=== PATIENT | female | born 1940 | race Caucasian/White ===

== ENCOUNTER → 2017-10-14 10:39 | Outpatient (CLI) | payer MEDICARE, OTHER, SELFPAY ==
--- NOTE | 2017-10-14 | DI.RAD.S_ITS ---
PROCEDURE: XR FOOT RT MIN 3V INDICATIONS: pain in right foot TECHNIQUE: 3 views of the foot were acquired. COMPARISON: None. FINDINGS: Bones: No fractures or dislocations. No suspicious bony lesions. Degenerative changes at the first metatarsal head. Hypertrophic changes over the dorsum of the foot at the tarsometatarsal junction. Plantar bone spur posterior calcaneus. Soft tissues: No tibiotalar joint effusion. Achilles tendon appears normal. IMPRESSION: 1. No fracture deformity identified. 2. Degenerative changes at the tarsometatarsal and first metatarsal phalangeal levels. 3. Plantar spur os calcis. Dictated by: Guille Lugo M.D. on 10/14/2017 at 11:54 Approved by: Guille Lugo M.D. on 10/14/2017 at 11:56
--- NOTE | 2017-10-14 | DI.US.S_ITS ---
PROCEDURE: US ABDOMEN COMPLETE INDICATIONS: LEFT UPPER QUADRANT ABDOMINAL PAIN TECHNIQUE: Real-time scanning was performed of the abdominal and retroperitoneal organs, with image documentation. COMPARISON: None. FINDINGS: Liver: Liver is normal in size and homogeneous in echotexture. Gallbladder: Gallbladder is surgically absent Biliary ducts: Intrahepatic bile ducts are non-dilated. Extrahepatic bile duct caliber measures 6 mm. Normal is 6-7 mm or less in diameter, or 10 mm or less post-cholecystectomy. Pancreas: Pancreas is obscured by bowel gas Spleen: Spleen is normal in size and homogeneous in echotexture. Kidneys: Kidneys are normal in size and echotexture. Right kidney measures 11.8 cm long; left kidney measures 10.1 cm long. No hydronephrosis or nephrolithiasis. No solid masses. Aorta: Visualized aorta is normal in caliber at less than 3 cm. Iliacs: Proximal common iliac arteries are normal in caliber at less than 2.5 cm. IVC: Intrahepatic inferior vena cava is patent. Miscellaneous: No free abdominal fluid. There is a 1.6 x 1.9 x 1.9 cm simple appearing fluid collection in the region of the scar in the anterior right upper quadrant, likely seroma IMPRESSION: 1. Status post cholecystectomy with normal common bile duct. 2. Probable seroma right upper quadrant abdominal wall Dictated by: Guille Lugo M.D. on 10/14/2017 at 11:36 Approved by: Guille Lugo M.D. on 10/14/2017 at 11:41
== END ==
PROVIDERS: PCP Family Medicine; Visit Provider Family Medicine
DX: R19.01 Right upper quadrant abdominal swelling, mass and lump (principal); M79.671 Pain in right foot; M19.071 Primary osteoarthritis, right ankle and foot; M77.31 Calcaneal spur, right foot
CPT/HCPCS: 73630; 76700

== ENCOUNTER → 2017-12-13 14:29 | Outpatient (CLI) | payer MEDICARE, OTHER, SELFPAY ==
--- NOTE | 2017-12-13 | DI.MRI.S_ITS ---
PROCEDURE: MR ANKLE RT WO CON INDICATIONS: CHRONIC RIGHT ANTERIOR ANKLE PAIN TECHNIQUE: Noncontrast sagittal T1 spin echo and T2 fast spin echo with fat saturation, axial proton density fast spin echo and T2 fast spin echo with fat saturation, coronal T1 spin echo and T2 fast spin echo with fat saturation through the ankle/hindfoot. COMPARISON: None. FINDINGS: Image quality: Excellent. Bones and joints: There is mild soft tissue swelling around ankle joint and extending along dorsal aspect of midfoot. Moderate osteophytic changes are noted involving the talonavicular joint with prominent dorsal osteophyte formation, subchondral sclerosis and edema. No gross acute fracture or dislocation. No other area of abnormal marrow signal is noted. Well-defined plantar and dorsal calcaneal enthesophytes are noted. No definite hindfoot coalitions. No osteochondral injuries of the talar dome. No pathologic joint effusions. Medial structures: The posterior tibialis, flexor digitorum longus, and flexor hallucis longus tendons are intact. The posterior tibial neurovascular bundle appears normal within the tarsal tunnel, without extrinsic mass effect. The deep layer (anterior and posterior tibiotalar ligaments) and superficial layer (tibionavicular, tibiospring, and tibiocalcaneal ligaments) of the deltoid ligament appear normal. The spring ligament components (superomedial calcaneonavicular, medioplantar oblique calcaneonavicular, and inferoplantar longitudinal ligaments) are intact. Lateral structures: The anterior talofibular, calcaneofibular, and posterior talofibular ligaments appear intact. More superiorly, the anterior and posterior tibiofibular ligaments appear intact, as is the intermalleolar ligament. The tibiofibular syndesmosis is normal in width at 2 mm or less. The peroneus longus and brevis tendons demonstrate normal location and morphology. Adjacent bony peroneal tubercle and retrotrochlear prominence are normal in size. The sinus tarsi demonstrates normal fatty signal, without edema, fibrosis, or cyst formation. Visualized sinus tarsi components (cervical ligament, interosseous talocalcaneal ligament, roots of the inferior extensor retinaculum) appear normal. The calcaneonavicular and calcaneocuboid components of the bifurcate ligament appear intact. The dorsal calcaneocuboid ligament appears intact. Anterior structures: There is thinning of the extensor hallucis longus tendon at the level of talonavicular joint suggestive of [id number] degree partial-thickness tear The tibialis anterior, and extensor digitorum longus tendons appear intact. The dorsal talonavicular ligament appears intact. Posterior and plantar structures: Achilles tendon is intact. Medial and lateral bands of the plantar fascia are of normal thickness. No abductor digiti quinti muscle atrophy to suggest [place] neuropathy. IMPRESSION: 1. Soft tissue swelling around ankle joint and along dorsal aspect of midfoot. 2. Moderate talonavicular joint osteoarthritis with prominent dorsal marginal osteophyte formation and marrow edema. No fracture or dislocation. 3. Low to moderate grade partial-thickness tear involving the extensor hallucis longus tendon at the level of talonavicular joint. No other tendon or ligament pathology is seen. 4. Well-defined plantar and dorsal calcaneal enthesophytes. Dictated by: Shayan Broussard M.D. on 12/13/2017 at 16:11 Approved by: Shayan Broussard M.D. on 12/13/2017 at 16:22
== END ==
PROVIDERS: PCP Family Medicine; Visit Provider Podiatrist
DX: M25.571 Pain in right ankle and joints of right foot (principal); M79.89 Other specified soft tissue disorders; M19.071 Primary osteoarthritis, right ankle and foot; S96.811A Strain of other specified muscles and tendons at ankle and foot level, right foot, initial encounter; M77.31 Calcaneal spur, right foot
CPT/HCPCS: 73721

== ENCOUNTER → 2018-05-23 10:03 | Outpatient (CLI) | payer MEDICARE, OTHER, SELFPAY ==
--- NOTE | 2018-05-23 | DI.RAD.S_ITS ---
PROCEDURE: XR CHEST 2V INDICATIONS: PNEUMONIA TECHNIQUE: 2 views of the chest were acquired. COMPARISON: None. FINDINGS: Surgical changes and devices: None. Lungs and pleura: Lungs are clear. No pleural effusions or pneumothorax. Mediastinum: Mediastinal contours are normal. Heart size is normal. Bones and chest wall: No suspicious bony abnormalities. Soft tissues appear unremarkable. IMPRESSION: Normal for age, source of current pneumonia symptoms is not seen. Dictated by: Andre Conner M.D. on 05/23/2018 at 10:32 Approved by: Andre Conner M.D. on 05/23/2018 at 10:33
== END ==
PROVIDERS: PCP Family Medicine; Visit Provider Family Medicine
DX: J15.9 Unspecified bacterial pneumonia (principal)
CPT/HCPCS: 71046

== ENCOUNTER → 2019-04-15 14:56 | Outpatient (CLI) | payer MEDICARE, OTHER, SELFPAY ==
--- NOTE | 2019-04-15 | DI.US.S_ITS ---
PROCEDURE: US CAROTID DOPPLER BI INDICATIONS: CARDIAC EFRAÍN WALLACE TECHNIQUE: Color and pulse Doppler interrogation was performed of both carotid systems, with image documentation and velocity measurements. COMPARISON: None. FINDINGS: Stenosis calculations are based on SRU (Society of Radiologists in Ultrasound) criteria. Right side: Brachial blood pressure: 143/74 mm Hg. Common carotid artery peak systolic velocity: 122 cm/sec. Internal carotid artery peak systolic velocity: 106 cm/sec. Internal carotid artery end diastolic velocity: 38 cm/sec. External carotid artery peak systolic velocity: 11 cm/sec. ICA/CCA peak systolic ratio: 0.87. Price scale imaging description: Scattered plaque in the bifurcation Percent internal carotid artery stenosis: Less than 50%. Vertebral artery: Flow direction is antegrade. Left side: Brachial blood pressure: 136/66 mm Hg. Common carotid artery peak systolic velocity: 77 cm/sec. Internal carotid artery peak systolic velocity: 90 cm/sec. Internal carotid artery end diastolic velocity: 30 cm/sec. External carotid artery peak systolic velocity: 309 cm/sec. ICA/CCA peak systolic ratio: 1.17. Price scale imaging description: Calci plaque in the bifurcation Percent internal carotid artery stenosis: Less than 50%. Vertebral artery: Flow direction is antegrade. IMPRESSION: Bilateral carotid atherosclerotic plaque. No hemodynamically significant ICA stenosis Incidentally noted left proximal ECA high-grade stenosis Dictated by: Chris Hanna M.D. on 04/15/2019 at 15:59 Approved by: Chris Hanna M.D. on 04/15/2019 at 16:02
--- NOTE | 2019-04-15 | DI.ECHO.S_ITS ---
[place] [facility]---------+ [facility] +---------+ : : [address] : : : : [id number] : : : : Phone: [phone] Echocardiogram Report + + :Name: NALLELY MERRITT Study Date: 04/15/2019 Height: 61 in : :[facility] Weight: 58 lb : : Gender: Female BSA: 1.1 m2 : :: 1940 Age: 79 yrs BP: 138/65 mmHg: :Reason For Study: MURMUR : :Ordering Physician: Dr. Foss : :Pasha Performed By: Rome Morfin : :Referring: KATHY GOVEA L : + + Interpretation Summary Normal sinus rhythm. Normal LV size, wall thickness, wall motion and LV systolic function. EF is 60-65%. Normal chamber sizes. Aortic valve leaflets are moderately thickened and mildly calcified. It is a trileaflet structure with moderately reduced leaflet excursion and mild- moderate ; mean gradient is 18 mm Hg and peak velocity is 2.7m/sec. There is mild mitral annular calcification. Otherwise no significant valvular abnormalities. No prior study available for comparison. Procedure: A two-dimensional transthoracic echocardiogram with color flow and Doppler was performed. The study quality was technically adequate. There is no prior echocardiogram noted for this patient. The patient was in normal sinus rhythm during the exam. Left Ventricle: The left ventricle is normal in size. There is normal left ventricular wall thickness. Left ventricular systolic function is normal. The ejection fraction is estimated to be 60-65%. Left ventricular wall motion is normal. Right Ventricle: The right ventricle is normal in size and function. Atria: The left atrial size is normal. Right atrial size is normal. The interatrial septum is intact with no evidence for an atrial septal defect. Mitral Valve: The mitral valve leaflets appear mildly thickened, but open well. The mitral valve leaflets are mildly calcified. Calcified chordae noted. There is mild mitral annular calcification. There is no mitral regurgitation noted. Aortic Valve: The aortic valve is mildly calcified. There is mild to moderately reduced leaflet mobility. There is mild to moderate aortic stenosis. The calculated aortic valve area is 1.3 cm2. The peak aortic velocity is 2.7 m/sec. The aortic valve mean gradient is 16 mmHg. There is trace aortic regurgitation. Tricuspid Valve: The tricuspid valve is normal in structure and function. There is trace tricuspid regurgitation. Pulmonary artery pressures cannot be estimated because of the lack of a measurable TR jet velocity. Pulmonic Valve: The pulmonic valve is not well visualized. There is trace pulmonic regurgitation. Great Vessels: The aortic root is normal size. The dimensions of the ascending aorta are normal. The pulmonary artery is normal size. The inferior vena cava was not visualized. Pericardium/ Pleura There is no pericardial effusion. There is no pleural effusion. MMode/2D Measurements & Calculations LVIDd: 4.1 cm LVOT diam: 2.0 cm LVIDs: 2.5 cm Ao root diam: 2.8 cm FS: 39.0 % Aortic Jxn: 2.0 cm EPSS: 0.55 cm asc Aorta Diam: 2.8 cm IVSd: 0.93 cm LVPWd: 0.83 cm LV guerin. diameter/BSA (cm/m^2): 3.7 LV sys. diameter/BSA (cm/m^2): 2.2 LA A2 area: 14.2 cm2 RA long axis: 5.3 cm LA A4 area: 15.7 cm2 RA area: 9.8 cm2 LA length (vol): 5.2 cm RA vol: 15.5 ml LA vol: 36.2 ml RA : 13.9 ml/m2 LA vol index: 32.4 ml/m2 TAPSE: 2.0 cm Doppler Measurements & Calculations Ao V2 max: 266.6 cm/sec LVOT Max Lb: 106.9 cm/sec Ao V2 mean: 189.2 cm/sec LV V1 max P.6 mmHg Ao max P.4 mmHg LV V1 VTI: 26.8 cm Ao mean P.1 mmHg ROB(I,D): 1.3 cm2 Ao V2 VTI: 62.1 cm ROB(V,D): 1.2 cm2 sev ratio: 0.43 ROB indexed to BSA (cm^2/m^2): 1.2 MV E max lb: 57.2 cm/sec PA V2 max: 76.6 cm/sec MV A max lb: 96.0 cm/sec PA V2 mean: 55.5 cm/sec MV E/A: 0.60 PA mean P.4 mmHg Med Peak E' Lb: 6.4 cm/sec PA Accel Time: 0.11 sec E/E' med: 8.9 Lat Peak E' Lb: 9.8 cm/sec E/E' lat: 5.8 E/e' average: 7.4 MV dec time: 0.21 sec SV(LVOT): 81.9 ml Electronically signed by: Terrie Magallon M.D. on Reading Physician:04/15/2019 10:02 PM
== END ==
PROVIDERS: PCP Family Medicine; Visit Provider Family Medicine
DX: I65.23 Occlusion and stenosis of bilateral carotid arteries (principal); I35.0 Nonrheumatic aortic (valve) stenosis; R01.1 Cardiac murmur, unspecified; R53.83 Other fatigue
CPT/HCPCS: 93306; 93880

== ENCOUNTER → 2020-01-07 08:49 | Outpatient (CLI) | payer MEDICARE, OTHER, SELFPAY ==
--- NOTE | 2020-01-07 | DI.US.S_ITS ---
PROCEDURE: US ABDOMEN COMPLETE INDICATIONS: EPIGASTRIC PAIN TECHNIQUE: Real-time scanning was performed of the abdominal and retroperitoneal organs, with image documentation. COMPARISON: [facility], , US ABDOMEN COMPLETE, 10/14/2017, 11:02. FINDINGS: Liver: Liver is normal in size and homogeneous in echotexture. Gallbladder: Has been removed Biliary ducts: Intrahepatic bile ducts are non-dilated. Extrahepatic bile duct caliber measures 4 mm. Normal is 6-7 mm or less in diameter, or 10 mm or less post-cholecystectomy. Pancreas: Visualized portions of the pancreas are sonographically normal. Spleen: Spleen is normal in size and homogeneous in echotexture. Kidneys: Kidneys are normal in size and echotexture. Right kidney measures 9.6 cm long; left kidney measures 10.2 cm long. No hydronephrosis or nephrolithiasis. No solid masses. Within the mid left kidney anteriorly, there is a 14 mm simple cyst seen. Aorta: Visualized aorta is normal in caliber at less than 3 cm. Iliacs: Proximal common iliac arteries are normal in caliber at less than 2.5 cm. IVC: Intrahepatic inferior vena cava is patent. Miscellaneous: No free abdominal fluid. Within the anterior abdominal wall on the right at the prior cholecystectomy scar, there is an anechoic fluid collection seen within the subcutaneous fat seen that measures 2.2 x 1.2 x 1.5 cm. No abnormal surrounding vascularity is seen. On the prior study, this measured 1.9 x 1.9 x 1.6 cm. IMPRESSION: Persistent seroma of the anterior abdominal wall, which is similar in size to the prior study from 2018. No abnormal vascularity is seen to suggest abscess at this time. Status post cholecystectomy, without biliary dilatation. Incidental note is made of: Simple appearing left renal cyst. Dictated by: Jose Lemus M.D. on 01/07/2020 at 9:54 Approved by: Jose Lemus M.D. on 01/07/2020 at 9:56
== END ==
PROVIDERS: PCP Family Medicine; Referring Provider Family Medicine; Visit Provider Family Medicine
DX: R10.13 Epigastric pain (principal); K91.872 Postprocedural seroma of a digestive system organ or structure following a digestive system procedure; Z90.49 Acquired absence of other specified parts of digestive tract
CPT/HCPCS: 76700

== ENCOUNTER 2023-06-10 17:25 | Observation (INO) | payer MEDICARE, OTHER, SELFPAY ==
[2023-06-10 17:36] VITALS: BP 171/74; PULSE 80; RESP 18; TEMP 36.4; O2SAT 98
[2023-06-10 17:46] VITALS: BP 171/74; PULSE 81; RESP 18; TEMP 36.4; O2SAT 98; BMI 26.4
[2023-06-10 18:25] LABS: Add Manual Diff / Slide Review NO; Basophils Absolute Auto 0 /uL (0-100); Basophils Percent Auto 0.5 % (0-2); Eosinophils Absolute Auto 500 /uL (0-450); Eosinophils Percent Auto 5.3 % (2-4); Hematocrit 33.2 % (36-46); Hemoglobin 11.2 g/dL (12.0-16.0); Lymphocytes Absolute Auto 1300 /uL (1100-4500); Lymphocytes Percent Auto 12.7 % (25-40); Mean Corpuscular HGB Conc 33.7 % (30-36); Mean Corpuscular Hemoglobin 30.1 PG (26-34); Mean Corpuscular Volume 89.1 fL (80-100); Monocytes Absolute Auto 700 /uL (0-900); Neutrophils Absolute Auto 7400 /uL (1500-7000); Neutrophils Percent Auto 74.5 % (50-75); Platelet Count 242 X10^3/uL (150-400); Red Blood Cell Count 3.73 X10^6/uL (4.0-5.2); Red Cell Distribution Width 14.3 % (11.6-14.8); White Blood Cell Count 9.9 X10^3/uL (4.5-11.0)
--- NOTE | 2023-06-10 18:36 | PC.NURSE ---
Pt reports initial toe redness/swelling back in december of 2022. It has been getting worse and patient saw her PCP and was given keflex antibiotics. She finishes the antibiotics tomorrow. Pt states increased redness,warmth, rash, radiating up through her calf, painful to touch. Pt states able to walk on the side of my foot with a walker, and very dizzy with walking. Pt also has similar red spots/rash on her right lower extremity. Pt reports history of multiple left foot surgeries due to breaking her great toe years ago. Pt says they had to go in multiple times to remove bone fragments. Pt refused further surgeries after 4x foot surgery's .
[2023-06-10 18:47] LABS: Alanine Aminotransferase 24 IU/L (<35); Albumin Globulin Ratio 1.3 (1.0-2.8); Alkaline Phosphatase 66 U/L (38-126); Aspartate Aminotransferase 31 IU/L (14-36); BUN Creatinine Ratio 28.3 (6-22); Bilirubin Total 0.5 mg/dL (0.2-1.3); Blood Urea Nitrogen 15 mg/dL (7-17); Calcium 8.9 mg/dL (8.4-10.2); Carbon Dioxide 34 mmol/L (22-32); Chloride 102 mmol/L (98-107); Estimated Glomerular Filt Rate > 60 mL/min (>60); Globulin 3.2 g/dL (1.7-4.1); Glucose 102 mg/dL (80-110); HEMOLYSIS < 15 (0-50); Potassium 4.1 mmol/L (3.4-5.1); Sodium 138 mmol/L (137-145); Total Protein 7.2 g/dL (6.3-8.2)
--- NOTE | 2023-06-10 19:30 | ED.SKABFB ---
HPI - Skin/Abscess/Foreign Bdy General Chief complaint: Skin/Abscess/Foreign Body Stated complaint: recheck toe infection Time Seen by Provider: 06/10/23 17:59 Source: patient Mode of arrival: EMS Limitations: no limitations History of Present Illness HPI narrative: 83-year-old woman with prior history of stroke no diabetes who presents with a left great toe infection that does not seem to be improving despite 2 weeks of Keflex. She does not describe fevers, abdominal pain, difficulty walking. She does have full sensation to her feet. She comes in for further evaluation Related Data Home Medications Medication Instructions Recorded Confirmed atorvastatin 80 mg tablet 80 mg PO DAILY 06/10/23 06/10/23 losartan 25 mg tablet 25 mg PO DAILY 06/10/23 06/10/23 Allergies Allergy/AdvReac Type Severity Reaction Status Date / Time No Known Drug Allergies Allergy Verified 06/10/23 17:49 Review of Systems Review of Systems Narrative: Pertinent positive and negative findings as per HPI Patient History Medical History (Updated 06/10/23 @ 22:12 by Stefani Bailon MD) CVA (cerebral vascular accident) Social History Smoking Status: Never smoker Smoking Status: Never smoker alcohol intake frequency: 0-2 drinks per day Substance Use Type: does not use Exam Initial Vital Signs Initial Vital Signs: Vital Signs Temperature 97.6 F 06/10/23 17:36 Pulse Rate 80 06/10/23 17:36 Respiratory Rate 18 06/10/23 17:36 Blood Pressure 171/74 H 06/10/23 17:36 Pulse Oximetry 98 06/10/23 17:36 Oxygen Delivery Method Room Air 06/10/23 17:36 General: Frail but otherwise healthy appearing, in no acute distress. Able to give a complete and coherent history. HEENT: Moist mucous membranes, normal sclera with reactive pupils, Neck: No JVD, supple Respiratory: Lungs are clear to auscultation, no wheezing no rales no rhonchi. Full and symmetrical air movement Cardiac: Regular rate and rhythm 3/6 systolic ejection murmur Abdomen: Soft, nontender, good bowel tones, no flank pain, no inguinal adenopathy Skin: Warm and dry, increasing redness over the dorsum of the foot. Chronic stasis dermatitis bilaterally. Neurologic: Grossly neurologically intact with no obvious asymmetries or abnormalities Extremities: Left great toe has significant onychomycosis with what appears to be purulent discharge under the nail causing paronychia with lymphangitic streaking starting over the dorsum of the foot. She is neurovascularly intact and does have good sensation to the tips of all toes. Psych: Cooperative, appropriate insight and affect Procedures [facility] [place] Procedure Name of Procedure: Toenail removal, left great toe Indication, infected paronychia Digital block done with 1% lidocaine without epinephrine with excellent anesthetic Quite a bit of purulence appreciated under the nail and at the nail base, this was collected for culture She tolerated the procedure well, a dressing with iodoform gauze was placed Course Orders Ordered: ED Orders 06/10/23 18:04 CBC Auto Diff [Complete Blood Count AUTO DIFF] Stat 06/10/23 18:15 Blood Culture Stat CMP [Comprehensive Metabolic Panel] Stat 06/10/23 19:13 Wound Culture and Gram Stain Stat 06/10/23 19:22 Lactate (Lactic Acid) Stat 06/10/23 22:09 XR toe LT min 2V Stat Discontinued Medications Ceftriaxone Sodium 2,000 mg/ (Sodium Chloride) 100 mls @ 200 mls/hr IV NOW ONE Stop: 06/10/23 19:16 Last Infusion: 06/10/23 20:10 Dose: Infused Documented By: Admin: 06/10/23 19:33 Dose: 200 mls/hr Documented By: RAHUL Vital Signs Vital signs: Vital Signs - 8 hr 06/10/23 17:36 06/10/23 17:46 Temperature 97.6 F 97.6 F Pulse Rate 80 81 Respiratory Rate 18 18 Blood Pressure 171/74 H Blood Pressure [Right Arm] 171/74 H Pulse Oximetry 98 98 Oxygen Delivery Method Room Air Room Air MDM - Skin/Abscess/Foreign Bdy Lab Data 06/10/23 18:04 06/10/23 18:15 Labs: Lab Results 06/10/23 06/10/23 06/10/23 Range/Units 18:04 18:15 19:22 WBC 9.9 (4.5-11.0) X10^3/uL RBC 3.73 L (4.0-5.2) X10^6/uL Hgb 11.2 L (12.0-16.0) g/dL Hct 33.2 L (36-46) % MCV 89.1 (80-100) fL MCH 30.1 (26-34) PG MCHC 33.7 (30-36) % RDW 14.3 (11.6-14.8) % Plt Count 242 (150-400) X10^3/uL Neut % (Auto) 74.5 (50-75) % Lymph % (Auto) 12.7 L (25-40) % Hamlin % (Auto) 7.0 (3-14) % Eos % (Auto) 5.3 H (2-4) % Baso % (Auto) 0.5 (0-2) % Neut # (Auto) 7400 H (7317-5483) /uL Lymph # (Auto) 1300 (3383-1094) /uL Hamlin # (Auto) 700 (0-900) /uL Eos # (Auto) 500 H (0-450) /uL Baso # (Auto) 0 (0-100) /uL Sodium 138 (137-145) mmol/L Potassium 4.1 (3.4-5.1) mmol/L Chloride 102 (98-107) mmol/L Carbon Dioxide 34 H (22-32) mmol/L BUN 15 (7-17) mg/dL Creatinine 0.53 (0.52-1.04) mg/dL Estimated GFR > 60 (>60) mL/min BUN/Creatinine Ratio 28.3 H (6-22) Glucose 102 (80-110) mg/dL Lactate 0.8 (0.7-2.1) mmol/L Calcium 8.9 (8.4-10.2) mg/dL Total Bilirubin 0.5 (0.2-1.3) mg/dL AST 31 (14-36) IU/L ALT 24 (<35) IU/L Alkaline Phosphatase 66 (38-126) U/L Total Protein 7.2 (6.3-8.2) g/dL Albumin 4.0 (3.5-5.0) g/dL Globulin 3.2 (1.7-4.1) g/dL Albumin/Globulin Ratio 1.3 (1.0-2.8) MDM Narrative Medical decision making narrative: CC: Concerned that left great toe infection is worsening Complicating co-morbidities: Age, 2 weeks of antibiotics already, prior stroke, no diabetes Data collected from: patient Medical records reviewed: No medical records are available for review Differential considered: Paronychial infection, worsening cellulitis, Exam documented above, pertinent findings include: Left great toe appears to have an abscess developing under the significantly dystrophic onychomycotic great nail with expanding paronychia and now with lymphangitic streaking up the dorsum of the foot. No abdominal pain, no swelling above the ankle, no inguinal adenopathy Lab Test results independently reviewed as above. Pertinent findings: CBC shows a white count of 9.9, mild anemia at 11.2 and 33.2 Chemistries are unremarkable with normal renal function Lactic is unremarkable Imaging studies independently reviewed: X-ray of the foot with radiology interpretation indicates Increased radiolucency involving medial and plantar periphery of 1st metatarsal head and neck, early osteomyelitis cannot be excluded. No suspicious bony lesions. Consultations: Dr. Yancey hospitalist Treatments: IV antibiotics, ceftriaxone, great toenail is removed, purulence underneath is cultured, she is given IV ceftriaxone, for her anxiety and to help her sleep she is given half a mg of oral Ativan. Discussion: 83-year-old woman with no significant history for coronary artery disease, diabetes or peripheral vascular disease who presents with infection of the left great toe. She has fairly dystrophic nail that seems to have caused paronychial infection that now has quite a bit of purulence in the paronychia and under the nail. She has been on antibiotics for 2 weeks it has not getting better is now having lymphangitic streaking up the dorsum of the foot. The nail has been removed. As she has failed outpatient treatment I am recommending hospitalization. She has been given ceftriaxone in the emergency department. At this point she has not having any pain, there was no evidence of sepsis. X-ray of the foot does not completely rule out osteomyelitis. We will need to be reviewed with hospitalist service to see if additional imaging we will be appropriate tomorrow. We will review with the hospitalist physician Discharge Plan Departure Patient Disposition: Admitted as Observation Clinical Impression: Acute bacterial paronychia, Onychodystrophy Cellulitis Qualifiers: Site of cellulitis: extremity Site of cellulitis of extremity: lower extremity Laterality: left Qualified Code(s): L03.116 - Cellulitis of left lower limb Admit Date/Time: 06/10/23 22:39 Admit Provider: Macario Steel
[2023-06-10] MEDS: cefTRIAXone 2,000 MG in SODIUM CHLORIDE 0.9% 100 ML 200 MG IV (19:33)
[2023-06-10 20:02] LABS: Lactate (Lactic Acid) 0.8 mmol/L (0.7-2.1)
--- NOTE | 2023-06-10 22:09 | DI.RAD.S_ITS ---
PROCEDURE: XR TOE LT MIN 2V INDICATIONS: infection TECHNIQUE: 3 views of the right toe(s) acquired. COMPARISON: None. FINDINGS: Bones: No fractures or dislocations. Prior fixation of great toe is seen with [address] No gross hardware loosening or failure. Increased radiolucency involving medial and plantar periphery of 1st metatarsal head and neck, early osteomyelitis cannot be excluded. No suspicious bony lesions. Soft tissues: No suspicious soft tissue densities. IMPRESSION: No acute left foot fracture or dislocation. Increased radiolucency involving plantar and medial aspect of 1st metatarsal head and neck, early osteomyelitis cannot be entirely excluded. No fracture or dislocation. Dictated by: Shayan Broussard M.D. on 06/10/2023 at 22:27 Approved by: Shayan Broussard M.D. on 06/10/2023 at 22:29
--- NOTE | 2023-06-10 22:33 | PC.NURSE ---
Update given to granddaughter Kenisha, per pt gave all information available at this time.
[2023-06-10 23:09] VITALS: BMI 26.4
[2023-06-10 23:35] VITALS: BP 150/64; PULSE 69; RESP 14; O2SAT 96
--- NOTE | 2023-06-11 00:06 | P.HP_ITS ---
History of Present Illness History of Present Illness Chief complaint: recheck toe infection Narrative: The pt is a 83 yo who developed sore red left great toe about 5 months ago and it has not bothered her much until 3 weeks ago when she noticed that the swelling was worse and it was much more painful. She comes to the ER Tonight due to the pain in the toe. In the ER, the provider removed the toenail and expressed moderate amount of pus. During my exam, she was feeling well and did not c/o any pain . [facility] Medical History (Updated 06/11/23 @ 00:07 by Macario Steel MD) CVA (cerebral vascular accident) Social History household members: family Smoking Status: Never smoker alcohol intake: never Meds Home Medications and Allergies Home Medications Medication Instructions Recorded Confirmed Type atorvastatin 80 mg tablet 80 mg PO DAILY 06/10/23 06/10/23 History losartan 25 mg tablet 25 mg PO DAILY 06/10/23 06/10/23 History aspirin 81 mg capsule 81 mg PO DAILY 06/11/23 06/11/23 History polyethylene glycol 3350 17 gram 17 g PO DAILY PRN Constipation 06/11/23 06/11/23 History oral powder packet (Miralax) Allergies Allergy/AdvReac Type Severity Reaction Status Date / Time No Known Drug Allergies Allergy Verified 06/10/23 17:49 Exam Vital Signs (past 8 hours): - 06/10/23 17:36 06/10/23 17:46 06/10/23 23:35 Temperature 97.6 F 97.6 F Pulse Rate 80 81 69 Respiratory Rate 18 18 14 Blood Pressure 171/74 H 150/64 H Blood Pressure [Right Arm] 171/74 H Pulse Oximetry 98 98 96 Oxygen Delivery Method Room Air Room Air Room Air Oxygen Delivery Method Room Air Resp Auscultation: clear to auscultation bilaterally Cardio Rate: regular rate Rhythm: regular rhythm Extrem Other: left great toe wrapped in gauze Objective Labs 06/10/23 18:04 06/10/23 18:15 Labs: Laboratory Results - last 24 hr 06/10/23 06/10/23 06/10/23 18:04 18:15 19:22 WBC 9.9 RBC 3.73 L Hgb 11.2 L Hct 33.2 L MCV 89.1 MCH 30.1 MCHC 33.7 RDW 14.3 Plt Count 242 Neut % (Auto) 74.5 Lymph % (Auto) 12.7 L [place] % (Auto) 7.0 Eos % (Auto) 5.3 H Baso % (Auto) 0.5 Neut # (Auto) 7400 H Lymph # (Auto) 1300 [place] # (Auto) 700 Eos # (Auto) 500 H Baso # (Auto) 0 Sodium 138 Potassium 4.1 Chloride 102 Carbon Dioxide 34 H BUN 15 Creatinine 0.53 Estimated GFR > 60 BUN/Creatinine Ratio 28.3 H Glucose 102 Lactate 0.8 Calcium 8.9 Total Bilirubin 0.5 AST 31 ALT 24 Alkaline Phosphatase 66 Total Protein 7.2 Albumin 4.0 Globulin 3.2 Albumin/Globulin Ratio 1.3 Assessment & Plan Assessment and plan (1) Cellulitis: Qualifiers: Laterality: left Site of cellulitis: extremity Site of cellulitis of extremity: lower extremity Qualified Code(s): L03.116 - Cellulitis of left lower limb Status: Acute (2) Acute bacterial paronychia: Status: Acute Plan THe pt is in stable medical condition, She was started on rocephin but I feel Vancomycin might have better coverage on a toe thus pharmacy was consulted for dose calculation and monitoring toxicity. I did discuss the pt's condition and treatment plan with the ER provider and agree with the decision for admission. We do not expect a long hospitalization, antiemetics and pain meds ordered prn. Quality VTE Deep Vein Thrombosis/Pulmonary Embolism Present on Admission: No
[2023-06-11 00:09] VITALS: BP 155/76; PULSE 84; RESP 16; TEMP 36.3; O2SAT 95
[2023-06-11] MEDS: HYDROCODONE/ACET 5/325 TABLET 1 TAB PO ×3 (00:14→20:38)
[2023-06-11] MEDS: VANCOMYCIN 1,250 MG/250 ML PIGGYBACK 167 MG IV (00:40)
[2023-06-11 06:12] VITALS: BP 111/54; PULSE 69; RESP 17; TEMP 36.3; O2SAT 96
[2023-06-11 08:00] VITALS: BP 123/64; PULSE 67; RESP 16; TEMP 36.6; O2SAT 99
--- NOTE | 2023-06-11 08:27 | DI.MRI.S_ITS ---
PROCEDURE: MR FOOT LT WO/W CON INDICATIONS: possible L great toe osteomyelitis TECHNIQUE: Multiphasic, multisequence MRI of the forefoot was performed, before and after intravenous contrast administration. COMPARISON: [facility], CR, XR TOE LT MIN 2V, 06/10/2023, 22:11. FINDINGS: Image quality: Mild mental artifact is seen related to the orthopedic hardware including areas of signal void, signal pile-up, and geometric distortion as well as inhomogeneous fat suppression despite the use of metal artifact reduction techniques. Diagnostic information is obtained. Bones and joints: Postsurgical changes are seen at the distal 1st metatarsal from realignment osteotomy and bunionectomy, with associated metal artifact that mildly obscures adjacent structures. Normal signal intensity is seen within the osseous structures of the great toe without loss of T1-weighted signal or cortical destruction. Mild degenerative changes are seen at the 1st metatarsophalangeal and metatarsal sesamoid articulations. Scattered degenerative changes are seen at the interphalangeal joints of the toes. Soft tissues: Abnormal appearance of the nail is seen at the great toe with small amount of nonenhancing fluid in the nail bed and surrounding soft tissue edema and enhancement. No drainable fluid collection is seen. Subcutaneous edema extends into the dorsum of the foot. No enhancing soft tissue mass. The visualized plantar foot muscles demonstrate normal signal and bulk. Visualized flexor and extensor tendons appear intact, without tenosynovitis. The distal insertions of the peroneus brevis and longus tendons appear intact. The principal Lisfranc ligament appears intact. Sagittal images demonstrate no evidence for plantar plate tears. IMPRESSION: 1. Soft tissue edema and enhancement are seen in the region of the nail bed and subungual region of the great toe. No drainable fluid collection is seen. No MR evidence of osteomyelitis. 2. Postsurgical changes at the distal 1st metatarsal. Mild forefoot osteoarthrosis. Approved by: Dung Ricketts M.D. on 06/11/2023 at 11:52
[2023-06-11] MEDS: VANCOMYCIN PER PHARMACY 1 REQUEST MISC (08:42)
[2023-06-11] MEDS: ACETAMINOPHEN 325 MG TABLET 650 MG PO (08:46)
[2023-06-11] MEDS: LOSARTAN 25 MG TABLET PO (08:46)
[2023-06-11] MEDS: cefTRIAXone 2,000 MG in SODIUM CHLORIDE 0.9% 100 ML 200 MG IV (09:49)
[2023-06-11] MEDS: SODIUM CHLORIDE 0.9% FLUSH 10 ML IV ×2 (09:50→20:32)
[2023-06-11 11:35] LABS: Hemoglobin A1C% w Est Avg Glu 5.4 % (4.0-6.0)
--- NOTE | 2023-06-11 11:42 | P.PN_ITS ---
Subjective Subjective Interval history: Patient will have MRI today to determine if osteomyelitis present in L 1st toe. She is not excited about the thought of 6 weeks of IV abx. Exam Vital Signs (past 8 hours): - 06/11/23 06:12 06/11/23 08:00 Temperature 97.3 F L 97.8 F Pulse Rate 69 67 Respiratory Rate 17 16 Blood Pressure 111/54 L 123/64 Pulse Oximetry 96 99 Oxygen Flow Rate 0 0 Oxygen Delivery Method Room Air Oxygen Flow Rate 0 Resp Auscultation: clear to auscultation bilaterally Cardio Rate: regular rate Rhythm: regular rhythm Extrem Other: left great toe wrapped in gauze, with redness extending fci up left foot Objective Labs 06/10/23 18:04 06/10/23 18:15 Labs: Laboratory Results - last 24 hr 06/10/23 06/10/23 06/10/23 18:04 18:15 19:22 WBC 9.9 RBC 3.73 L Hgb 11.2 L Hct 33.2 L MCV 89.1 MCH 30.1 MCHC 33.7 RDW 14.3 Plt Count 242 Neut % (Auto) 74.5 Lymph % (Auto) 12.7 L [place] % (Auto) 7.0 Eos % (Auto) 5.3 H Baso % (Auto) 0.5 Neut # (Auto) 7400 H Lymph # (Auto) 1300 [place] # (Auto) 700 Eos # (Auto) 500 H Baso # (Auto) 0 Sodium 138 Potassium 4.1 Chloride 102 Carbon Dioxide 34 H BUN 15 Creatinine 0.53 Estimated GFR > 60 BUN/Creatinine Ratio 28.3 H Glucose 102 Lactate 0.8 Calcium 8.9 Total Bilirubin 0.5 AST 31 ALT 24 Alkaline Phosphatase 66 Total Protein 7.2 Albumin 4.0 Globulin 3.2 Albumin/Globulin Ratio 1.3 [facility] Medical History (Updated 06/11/23 @ 00:07 by Macario Steel MD) CVA (cerebral vascular accident) Social History household members: family Smoking Status: Never smoker alcohol intake: never Assessment & Plan Assessment & Plan narrative: # cellulitis and abscess of L great toe, with possible underlying osteomyelitis -I&D of pus performed in ED, culture pending -continue vanco -MRI left foot ordered to look for osteomyelitis -if MRI positive may need to involve ortho # HTN -continue losartan # HLD -continue statin Dispo; Pending MRI results. 1-2 days. Quality VTE Deep Vein Thrombosis/Pulmonary Embolism Present on Admission: No
--- NOTE | 2023-06-11 14:33 | CM.DANOTE ---
DCP Assessment Note Reviewed EMR and team rounds for patient's medical status and initial discharge needs. Met with pt at bedside to introduce self and role. Pt was found to be alert and oriented and able to discuss preferences for discharge. Pt is , lives in own apartment above granddaughter. Granddaughter is able to provide care assistance as well as transport home once medically cleared for discharge. Payer: Medicare PCP: Pipo Pak Pt is an 83 year old female who was admitted for cellulitis and imaging ruled out osteomyelitis. Plan: Follow closely for possible PT eval and any impending discharge needs. Discharge Planning/Care Management CM Discharge Assessment Start: 06/11/23 11:50 Freq: Status: Active Protocol: Document 06/11/23 13:52 MW (Rec: 06/11/23 14:30 MW [id number]) Discharge Planning Assessment Assigned Inventory Specialist MANISH Escalante Advance Directives? No History Provided By Patient,Medical Record Expected Length of Stay 2 Has Patient been admitted in last 30 No days? Prior Living Arrangements House Household Members family Comment Patient lives in an apartment above her granddaughter. Type of transporation used prior to Relies on Others admit Independent with ADL's Yes Is patient alert and oriented? Yes Needs Assistance With Home Chores / Shopping Comment Pt relies on children/ granddaughters for assistance with shopping and medical appointments. Caregiver for Another No DME Already Rented / Owned FWW / Walker Comment No identified home d/c needs a this time. Barriers to Discharge No Discharge Plan Home Referrals Initiated None needed Whiteboard Updated in Patient Room with Yes name and ext. # of Inventory Specialist Please Provide Date Initial DC 06/11/23 Assessment Was Performed
[2023-06-11 16:00] VITALS: BP 123/53; PULSE 66; RESP 16; TEMP 36.4; O2SAT 90
[2023-06-11] MEDS: VANCOMYCIN 1,000 MG/200 ML PIGGYBACK 200 MG IV (18:21)
[2023-06-11 21:34] VITALS: BP 147/62; PULSE 62; RESP 16; TEMP 36.2; O2SAT 96
[2023-06-12 04:26] VITALS: BP 159/62; PULSE 70; RESP 16; TEMP 36.2; O2SAT 96
--- NOTE | 2023-06-12 04:27 | PC.NURSE ---
Patient is alert and oriented. Breath sounds CTA with RA sat of 96%. HRR. Complained of dizziness when up to bathroom at start of shift but no complaints of same at this time. Denied nausea. BT present and is passing flatus but last BM was 3/ but declined laxative. Is voiding on toilet and denied any dysuria. Is able to turn herself and gets up to bathroom with walker and 1 assist. Dressing to left great toe is CDI; toe is reddened at tip and some redness also noted on dorsum of foot. Complained of 8/10 chronic head pain (residual from CVA per patient) and 4/10 toe pain and was medicated with vicodin earlier on shift and has been asleep until now; now states pain in toe is 6/10 but declined any further pain medication. Bilateral calf SCD's were applied. Placed on contact precautions at start of shift as toe culture is growing gm + cocci. Fall risk score is high and bed alarm is activated.
[2023-06-12 08:00] VITALS: BP 137/68; PULSE 69; RESP 16; TEMP 36.4; O2SAT 96
[2023-06-12] MEDS: cefTRIAXone 2,000 MG in SODIUM CHLORIDE 0.9% 100 ML 200 MG IV (08:32)
[2023-06-12] MEDS: SODIUM CHLORIDE 0.9% FLUSH 10 ML IV (08:33)
[2023-06-12] MEDS: LOSARTAN 25 MG TABLET PO (08:46)
[2023-06-12] MEDS: ACETAMINOPHEN 325 MG TABLET 650 MG PO (08:47)
[2023-06-12] MEDS: VANCOMYCIN 1,000 MG/200 ML PIGGYBACK 200 MG IV (11:07)
--- NOTE | 2023-06-12 12:10 | PM.CN ---
History of Present Illness Consult details Date Patient Seen: 06/12/23 Time Patient Seen: 12:00 Chief complaint: recheck toe infection Reason for consult: Left great toe infection Requesting provider: Jamarcus Cruz Narrative: Consulted with patient admitted to acute care for acute bacterial paronychia of the left great toe. Patient is currently receiving IV antibiotics. Patient denies pain with dressing change. Meds Home Medications and Allergies Home Medications Medication Instructions Recorded Confirmed Type atorvastatin 80 mg tablet 80 mg PO DAILY 06/10/23 06/10/23 History losartan 25 mg tablet 25 mg PO DAILY 06/10/23 06/10/23 History aspirin 81 mg capsule 81 mg PO DAILY 06/11/23 06/11/23 History polyethylene glycol 3350 17 gram 17 g PO DAILY PRN Constipation 06/11/23 06/11/23 History oral powder packet (Miralax) doxycycline hyclate 100 mg capsule 100 mg PO BID 5 days #10 caps 06/12/23 Rx Allergies Allergy/AdvReac Type Severity Reaction Status Date / Time No Known Drug Allergies Allergy Verified 06/10/23 17:49 Exam Vital Signs (past 8 hours): - 06/12/23 04:26 Temperature 97.1 F L Pulse Rate 70 Respiratory Rate 16 Blood Pressure 159/62 H Pulse Oximetry 96 Oxygen Flow Rate 0 Oxygen Delivery Method Room Air Oxygen Flow Rate 0 Objective Labs 06/10/23 18:04 06/10/23 18:15 [facility] Medical History (Updated 06/11/23 @ 00:07 by Macario Steel MD) CVA (cerebral vascular accident) Social History household members: family Tobacco & Substance Use Smoking Status: Never smoker alcohol intake: never Assessment & Plan Assessment and plan (1) Acute bacterial paronychia: Status: Acute Plan -Cleanse with NS -Dress wound with xeroform, secure with roll guaze. -Change daily
--- NOTE | 2023-06-12 15:29 | CM.DPC ---
DCP Cont. Reviewed EMR and team rounds for status updates. Following for day and time for wound care follow up appointments post discharge. CM Team following for any impending discharge needs.
--- NOTE | 2023-06-12 15:59 | PM.DS.1 ---
History of Present Illness History of Present Illness Chief complaint: recheck toe infection Narrative: The pt is a 83 yo who developed sore red left great toe about 5 months ago and it has not bothered her much until 3 weeks ago when she noticed that the swelling was worse and it was much more painful. She comes to the ER Tonight due to the pain in the toe. In the ER, the provider removed the toenail and expressed moderate amount of pus. During my exam, she was feeling well and did not c/o any pain . Discharge Providers Provider Date of admission: 06/10/23 22:39 Discharge Date: 06/12/23 Primary care physician: Pipo Pak MD Consults: 06/11/23 15:44 Consult to Wound Care Routine Comment: Consulting Provider: Gerard- Wound Care Discharge provider: Jamarcus Cruz DO Summary Hospital Course Discharge Diagnosis: # cellulitis and abscess of L great toe, with possible underlying osteomyelitis -I&D of pus performed in ED, culture pending -continue vanco -MRI left foot ordered to look for osteomyelitis-no evidence of osteo just soft tissue edema and cellulitis -wound care consulted and provided dressing recs, she will f/up in clinic with them next week -put on doxy on dc # HTN -continue losartan # HLD -continue statin Hospital Course: Admitted for L great toe infection with purulent infected paronychia. ED performed I&D and culture sent which is growing GNB. Patient given IV vanc then narrowed to doxy on discharge. She will f/up with wound care in clinic next week on 06/16. Exam Vital Signs (past 8 hours): - 06/12/23 08:00 Temperature 97.5 F L Pulse Rate 69 Respiratory Rate 16 Blood Pressure 137/68 Pulse Oximetry 96 Oxygen Delivery Method Room Air Oxygen Flow Rate 0 Resp Auscultation: clear to auscultation bilaterally Cardio Rate: regular rate Rhythm: regular rhythm Extrem Other: left great toe wrapped in gauze, with redness extending nursing home up left foot now improving Objective Labs 06/10/23 18:04 06/10/23 18:15 [facility] Medical History (Updated 06/11/23 @ 00:07 by Macario Steel MD) CVA (cerebral vascular accident) Social History household members: family Smoking Status: Never smoker alcohol intake: never Discharge Plan Discharge Plan Patient Disposition: Home Provider Discharge Comment: Please take an antibiotic for 5 more days for your toe infection. Also change the dressings daily and f/up in the wound care clinic next week. Discharge orders & Medications Prescriptions: New doxycycline hyclate 100 mg capsule 100 mg PO BID 5 Days Qty: 10 0RF Rx Instructions: take with a full cup of water, and don't lie down after for 1 hour Continued atorvastatin 80 mg tablet 80 mg PO DAILY losartan 25 mg tablet 25 mg PO DAILY polyethylene glycol 3350 [Miralax] 17 gram Powder In Packet 17 g PO DAILY PRN (Reason: Constipation) aspirin 81 mg Capsule 81 mg PO DAILY Follow up/Referrals: Ervin Michelle MD [Physician] - 06/17/23 9:45 am (APPT:06/16 9:45 CHECK IN FOR A 10:[address] Michelle ) Pipo Pak MD [Primary Care Provider] - 2 Weeks Visit Report/Discharge Packet Instructions: How to Care for a Surgical Wound, How to Prevent Falls Stand Alone Forms: Patient Portal/API, Stroke Signs & Symptoms Discharge Data Primary Care Provider: Pipo Pak Attending Provider: Macario Steel Admit Date/Time: 06/10/23 22:39 Quality VTE Deep Vein Thrombosis/Pulmonary Embolism Present on Admission: No
--- NOTE | 2023-06-12 16:52 | PC.NURSE ---
Day shift: Left unit via WC at approx 1650. Paperwork signed and all questions answered. Pt has her watch that was in the med drawer. Pt also has all other personal belongings. MD scripts sent electronic to Pt's pharmacy. Family member is driving Pt home. Pt supplied with dressing/wound randle material per MD/woundcare.
== END 2023-06-12 16:54 | disposition home or self-care (01) ==
LOC: ED 22:12 → AC 22:40
PROVIDERS: Emergency Medicine; Student in an Organized Health Care Education/Training Program; Admitting Provider Internal Medicine; Emergency Provider Emergency Medicine; PCP Family Medicine; Referring Provider Emergency Medicine; Visit Provider Internal Medicine
DX: L03.032 Cellulitis of left toe (principal); B96.89 Other specified bacterial agents as the cause of diseases classified elsewhere; Z86.73 Personal history of transient ischemic attack (TIA), and cerebral infarction without residual deficits
CPT/HCPCS: 11730; 36415; 73660; 73720; 80053; 83036; 83605; 85025; 87040; 87070; 87077; 87186; 87205; 96365; 96366; 96367; 99284; G0378; J0696

== ENCOUNTER → 2023-06-21 12:45 | Outpatient (CLI) | payer MEDICARE, OTHER, SELFPAY ==
[2023-06-10 23:09] VITALS: BMI 26.4
== END ==
LOC: WC 13:02
PROVIDERS: PCP Family Medicine; Referring Provider Student in an Organized Health Care Education/Training Program; Visit Provider Nurse Practitioner Family
DX: T81.89XA Other complications of procedures, not elsewhere classified, initial encounter (principal); S91.102A Unspecified open wound of left great toe without damage to nail, initial encounter; L98.8 Other specified disorders of the skin and subcutaneous tissue; R60.0 Localized edema; I10 Essential (primary) hypertension; E78.5 Hyperlipidemia, unspecified
CPT/HCPCS: 97597; 99204; 99214

== ENCOUNTER → 2023-07-02 11:09 | Outpatient (CLI) | payer MEDICARE, OTHER, SELFPAY ==
[2023-06-10 23:09] VITALS: BMI 26.4
== END ==
LOC: WC 11:11
PROVIDERS: PCP Family Medicine; Referring Provider Student in an Organized Health Care Education/Training Program; Visit Provider Surgery
DX: T81.89XA Other complications of procedures, not elsewhere classified, initial encounter (principal); S91.202A Unspecified open wound of left great toe with damage to nail, initial encounter; L98.8 Other specified disorders of the skin and subcutaneous tissue; I10 Essential (primary) hypertension; E78.5 Hyperlipidemia, unspecified; M79.675 Pain in left toe(s); Z79.2 Long term (current) use of antibiotics
CPT/HCPCS: 11042; 99213

== ENCOUNTER → 2023-07-09 11:05 | Outpatient (CLI) | payer MEDICARE, OTHER, SELFPAY ==
[2023-06-10 23:09] VITALS: BMI 26.4
== END ==
LOC: WC 11:07
PROVIDERS: PCP Family Medicine; Referring Provider Student in an Organized Health Care Education/Training Program; Visit Provider Surgery
DX: T81.89XD Other complications of procedures, not elsewhere classified, subsequent encounter (principal); S91.202D Unspecified open wound of left great toe with damage to nail, subsequent encounter; R60.0 Localized edema
CPT/HCPCS: 99213

== ENCOUNTER 2023-08-01 17:28 | Emergency (ER) | payer MEDICARE, OTHER, SELFPAY ==
[2023-08-01 17:37] VITALS: BP 201/81; PULSE 65; RESP 14; TEMP 36.1; O2SAT 99; BMI 25.9
--- NOTE | 2023-08-01 17:43 | ED.RECABL ---
HPI - Recheck/Abnormal Lab/Rx <Nigel Fernando PA-C - Last Filed: 08/01/23 18:21> General Chief Complaint: Recheck/Abnormal Lab/Rx Stated Complaint: toe infection Time Seen by Provider: 08/01/23 17:43 Source: patient Mode of arrival: Ambulatory History of Present Illness HPI narrative: This is a 83-year-old female presents emergency department due to concerns for a repeat toe infection to her left great toe. States that she was hospitalized about 2 months ago due to the toe infection. She was discharged on a course of doxycycline. Was seen at Wound Care about 3 weeks ago and given another course of doxycycline. She was concerned that the infection is ?coming back? as there is some redness around the border of the toenail. Denies any fevers, redness spreading of her foot, or any other concerning signs or symptoms. Related Data Home Medications Medication Instructions Recorded Confirmed atorvastatin 80 mg tablet 80 mg PO DAILY 06/10/23 06/10/23 losartan 25 mg tablet 25 mg PO DAILY 06/10/23 06/10/23 aspirin 81 mg capsule 81 mg PO DAILY 06/11/23 06/11/23 polyethylene glycol 3350 17 gram 17 g PO DAILY PRN Constipation 06/11/23 06/11/23 oral powder packet (Miralax) Previous Rx's Medication Instructions Recorded doxycycline hyclate 100 mg capsule 100 mg PO BID #20 caps 08/01/23 Allergies Allergy/AdvReac Type Severity Reaction Status Date / Time No Known Drug Allergies Allergy Verified 06/10/23 17:49 Review of Systems <Nigel Fernando PA-C - Last Filed: 08/01/23 18:21> Review of Systems Narrative: GENERAL: Denies chills, fatigue, malaise, fever, sweats. HEENT: Denies sinus pain, ear pain, sore throat, difficulty swallowing, dizziness. RESPIRATORY: Denies dyspnea, cough, wheezing, hemoptysis, sputum. CARDIOVASCULAR: Denies chest pain, palpitations, orthopnea, edema, GASTROINTESTINAL: Denies nausea, vomiting, abdominal pain, diarrhea, constipation, melena. : Denies dysuria, frequency, incontinence, hematuria, urinary retention. MUSCULOSKELETAL: denies weakness, joint pain, or bony pain SKIN: Left great toe infection NEUROLOGIC: Denies weakness, headache, numbness, change in speech, confusion, seizures, incoordination. PSYCHIATRIC: No concerning psychosocial issues. 12 point review of systems is negative except for those stated above Patient History <Nigel Fernando PA-C - Last Filed: 08/01/23 18:21> Medical History (Updated 08/01/23 @ 18:21 by Nigel Fernando PA-C) CVA (cerebral vascular accident) Social History household members: family Smoking Status: Never smoker alcohol intake: never Smoking Status: Never smoker alcohol intake frequency: 0-2 drinks per day Substance Use Type: does not use Exam <Nigel Fernando PA-C - Last Filed: 08/01/23 18:21> Narrative Exam Narrative: GENERAL: Well-developed patient, in mild distress. HEAD: Atraumatic. Normocephalic. EYES: Pupils equal round and reactive. Extraocular motions intact. No scleral icterus. No injection or drainage. ENT: Nose without bleeding, purulent drainage. Throat without erythema, tonsillar hypertrophy or exudate. Airway patent. NECK: Trachea midline. Non tender EXTREMITIES: No edema or joint tenderness. NEURO: AOx3. SKIN: Significant crusting of the toenail bed of the left great toe. There was no erythema streaking of the foot. On my exam there does not appear to be an overly cellulitic area around the great toe although patient states that there is a small bit that is different than usual. Neurovascularly intact throughout. Initial Vital Signs Initial Vital Signs: Vital Signs Temperature 97.0 F L 08/01/23 17:37 Pulse Rate 65 08/01/23 17:37 Respiratory Rate 14 08/01/23 17:37 Blood Pressure 201/81 H 08/01/23 17:37 Pulse Oximetry 99 08/01/23 17:37 Oxygen Delivery Method Room Air 08/01/23 17:37 <Macario Griggs DO - Last Filed: 08/02/23 07:22> Initial Vital Signs Initial Vital Signs: Vital Signs Temperature 97.0 F L 08/01/23 17:37 Pulse Rate 65 08/01/23 17:37 Respiratory Rate 14 08/01/23 17:37 Blood Pressure 201/81 H 08/01/23 17:37 Pulse Oximetry 99 08/01/23 17:37 Oxygen Delivery Method Room Air 08/01/23 17:37 Course <Nigel Fernando PA-C - Last Filed: 08/01/23 18:21> Vital Signs Vital signs: Vital Signs - 8 hr 08/01/23 17:37 Temperature 97.0 F L Pulse Rate 65 Respiratory Rate 14 Blood Pressure 201/81 H Pulse Oximetry 99 Oxygen Delivery Method Room Air <Macario GriggsDO - Last Filed: 08/02/23 07:22> Vital Signs Vital signs: Vital Signs - 8 hr 08/01/23 17:37 Temperature 97.0 F L Pulse Rate 65 Respiratory Rate 14 Blood Pressure 201/81 H Pulse Oximetry 99 Oxygen Delivery Method Room Air MDM - Recheck/Abnormal Lab/Rx <Nigel Fernando PA-C - Last Filed: 08/01/23 18:21> MDM Narrative Medical decision making narrative: ED course: This is a 83-year-old female presents to the emergency department due to concerns of a repeat left great toe infection. Please see record review note below but briefly patient was hospitalized due to a infected left great toe, given Chen IV antibiotics, and discharged with a course of doxycycline with instructions follow up with wound care. Wound care saw her about 3 weeks ago and discharged her with another course of doxycycline that they were concerns it had become infected. She was coming here today due to concerns that it has gotten worse over the last couple of days. On my exam and does not appear overly cellulitic but we will prescribe a prophylactic course of antibiotics until she was able to follow up with the Podiatry which she plans on scheduling tomorrow. There was no streaking up the toe and vitals within normal limits. No significant purulent discharge noted on exam. CC: Left great toe infection Complicating co-morbidities: History of great toe infection Data collected from: Previous notes Medical records reviewed: Patient was seen here a month and a half ago due to a check of the toe infection. Prior history of stroke. Presents with a left great toe infection that was not improving with 2 weeks of Keflex. Was noted to have significant onychomycosis with purulent discharge with paronychia with streaking over the dorsum of the foot. Toenail removal procedure was performed with some purulent drainage that was collected for culture. X-rays were taken which showed possible early osteomyelitis. IV antibiotics were given. Patient was hospitalized due to failing outpatient management antibiotics. Patient was given IV antibiotics in the hospital. MRI of the left foot was ordered which showed no evidence of osteomyelitis. Was recommended follow up with the wound care outpatient. Put on doxy on discharge. Differential considered, but not limited to: Skin infection, osteomyelitis, sepsis Exam documented above, pertinent findings include: No significant erythema spreading of the foot Lab Test results independently reviewed as above. Pertinent findings: None obtained Imaging studies independently reviewed: None obtained Scores Used: None MIPS Elements: None Consultations: None Treatments: None Re-evaluations: None Discussion: Discussed plan with the patient was comfortable with the plan Diagnosis: Left great toe infection Disposition: see below, along with detailed discharge instructions that have been reviewed with patient as well as indications for ED re-evaluation and additional outpatient follow up Discharge Plan Departure Patient Disposition: Home Clinical Impression: Infection of toe Activity Restrictions/Additional Instructions: Thank you for coming to the [facility] Emergency Department today. As discussed please follow up with the prefitter doors soon as you are able to for definitive management. Please take this course of antibiotics to avoid any worsening infection. Please return to the emergency department if you develop any redness beginning to go up the foot while you are on the antibiotics, fevers, or any other concerning signs or symptoms. I hope you feel better soon. Please follow up with your primary care provider within a week if your symptoms continue. If you do not have a primary care provider please contact the [facility] Resource line at [phone]. They will ask some questions about your medical history and help you get set up with a provider in the community. Prescriptions: New doxycycline hyclate 100 mg capsule 100 mg PO BID Qty: 20 0RF No Action atorvastatin 80 mg tablet 80 mg PO DAILY losartan 25 mg tablet 25 mg PO DAILY polyethylene glycol 3350 [Miralax] 17 gram Powder In Packet 17 g PO DAILY PRN (Reason: Constipation) aspirin 81 mg Capsule 81 mg PO DAILY Referrals: Pipo Pak MD [Primary Care Provider] - Stand Alone Forms: Patient Portal/API ED Sign-out <Macario Griggs DO - Last Filed: 08/02/23 07:22> Cosign ED Attending Cossorinature Attestation: Dr Griggs Co-Sign Statement: I was available for consultation during this patient's emergency department visit. This chart is signed by myself for administrative purposes only. I did not have direct contact with this patient during this visit. They were seen independently by the APC.
[2023-08-01 18:32] VITALS: BP 165/74; PULSE 62; RESP 14; O2SAT 95
== END 2023-08-01 18:33 | disposition home or self-care (01) ==
PROVIDERS: Emergency Provider Physician Assistant Medical; PCP Family Medicine
DX: L08.9 Local infection of the skin and subcutaneous tissue, unspecified (principal)
CPT/HCPCS: 99281; 99283

== ENCOUNTER 2024-04-13 14:44 | Emergency (ER) | payer MEDICARE, OTHER, SELFPAY ==
[2024-04-13] VITALS (22 sets, daily range): BP systolic 136–236; BP diastolic 63–105; PULSE 57–78; RESP 14–22; TEMP 36.8; O2SAT 96–100; BMI 23.6
[2024-04-13] MEDS: LOSARTAN 25 MG TABLET PO ×2 (15:23→18:13)
--- NOTE | 2024-04-13 16:45 | PC.NURSE ---
Upon arrival this patient had elevated blood pressure. This RN verified patient medication list and informed provider of patient concerns. Provider gave verbal order to give patient home blood pressure medication and place and HEARING THERAPIST consult. HEARING THERAPIST consult placed. This RN has watched patient blood pressure decrease. This RN has reproached patient several times and patient denies having any pain or other concerns besides the elevated blood pressure.
--- NOTE | 2024-04-13 17:15 | PC.NURSE ---
shweta in place pt education given
--- NOTE | 2024-04-13 18:07 | ED_ITS ---
HPI - General Adult General Chief complaint: Weakness Stated complaint: Flu like symptoms/ hypertesion Time Seen by Provider: 04/13/24 18:07 Source: patient and EMS Mode of arrival: EMS History of Present Illness HPI narrative: 84-year-old female lives in [place] with family caregiver adjacent floor, difficult access due to stairs, uses walker and sometimes wheelchair, has missed appointments for refill medication, has not been taking her losartan 25 mg daily, and her Lipitor 80 mg daily, due to lack of access being able to get down the stairs to go diamond picker her prescriptions and make follow up appointments with her PCP. She has concerns about blood pressure elevation. She had loose stools without black or red color this morning, last week she also had an episode of loose stools. No recent antibiotics. No fevers or chills. However she has had ?intermittent hot and cold? sensation generalized over the last few weeks. No focal weakness to face arm or leg. No chest pain or shortness of breath. No dysuria or frequency of urination. She denies abdominal discomfort. No flank pain. Related Data Home Medications Medication Instructions Recorded Confirmed atorvastatin 80 mg tablet 80 mg PO DAILY 06/10/23 04/13/24 losartan 25 mg tablet 25 mg PO DAILY 06/10/23 04/13/24 aspirin 81 mg capsule 81 mg PO DAILY 06/11/23 04/13/24 polyethylene glycol 3350 17 gram 17 g PO DAILY PRN Constipation 06/11/23 06/11/23 oral powder packet (Miralax) Previous Rx's Medication Instructions Recorded doxycycline hyclate 100 mg capsule 100 mg PO BID #20 caps 08/01/23 atorvastatin 80 mg tablet 80 mg PO BEDTIME #30 tabs 04/13/24 cephalexin 500 mg capsule 500 mg PO QID 7 days #28 caps 04/13/24 losartan 25 mg tablet 25 mg PO DAILY #30 tabs 04/13/24 Allergies Allergy/AdvReac Type Severity Reaction Status Date / Time No Known Drug Allergies Allergy Verified 06/10/23 17:49 Patient History Medical History (Updated 04/13/24 @ 21:50 by Pavel Tapia MD) CVA (cerebral vascular accident) Social History household members: family Smoking Status: Never smoker alcohol intake: never Smoking Status: Never smoker alcohol intake frequency: 0-2 drinks per day Exam Narrative Exam Narrative: GENERAL: Well-developed patient, in mild distress. HEAD: Atraumatic. Normocephalic. EYES: Pupils equal round and reactive. Extraocular motions intact. No scleral icterus. No injection or drainage. ENT: Nose without bleeding, purulent drainage. Throat without erythema, tonsillar hypertrophy or exudate. Airway patent. NECK: Trachea midline. Non tender CARDIOVASCULAR: Regular rate and rhythm without murmurs, gallops, or rubs. RESPIRATORY: Clear to auscultation. Breath sounds equal bilaterally. No wheezes, rales, or rhonchi. GASTROINTESTINAL: Abdomen soft, non-tender, nondistended. EXTREMITIES: No edema or joint tenderness. BACK: Nontender without deformity or crepitance. No flank tenderness. NEURO: AOx3. Motor functions grossly nonfocal SKIN: No rash or erythema of visible areas Initial Vital Signs Initial Vital Signs: Vital Signs Pulse Rate 71 04/13/24 14:48 Pulse Oximetry 100 04/13/24 14:48 Course Orders Ordered: ED Orders 04/13/24 20:53 XR chest 1V Stat 04/13/24 21:12 Urinalysis and Microscopic Stat Urine Culture Stat Discontinued Medications Cephalexin HCl (Cephalexin 250 Mg Capsule) 500 mg PO NOW ONE Stop: 04/13/24 21:47 Last Admin: 04/13/24 22:08 Dose: 500 mg Documented By: IFTIKHAR Losartan Potassium (Losartan 25 Mg Tablet) 25 mg PO NOW ONE Stop: 04/13/24 15:20 Last Admin: 04/13/24 15:23 Dose: 25 mg Documented By: RB Losartan Potassium (Losartan 25 Mg Tablet) 25 mg PO NOW ONE Stop: 04/13/24 18:08 Last Admin: 04/13/24 18:13 Dose: 25 mg Documented By: RB Vital Signs Vital signs: Vital Signs - 8 hr 04/13/24 20:00 04/13/24 20:00 04/13/24 20:30 Pulse Rate 60 63 Respiratory Rate 18 18 Blood Pressure 159/69 H Pulse Oximetry 100 98 Oxygen Delivery Method Room Air Room Air 04/13/24 20:30 04/13/24 21:00 04/13/24 21:00 Pulse Rate 60 Respiratory Rate 20 Blood Pressure 148/68 H 149/65 H Pulse Oximetry 99 Oxygen Delivery Method Room Air 04/13/24 21:30 04/13/24 21:30 04/13/24 22:00 Pulse Rate 59 L Respiratory Rate 16 Blood Pressure 149/67 H 136/63 Pulse Oximetry 97 Oxygen Delivery Method Room Air 04/13/24 22:00 Pulse Rate 61 Respiratory Rate 14 Blood Pressure Pulse Oximetry 96 Oxygen Delivery Method Room Air Medical Decision Making Lab Data Lab results reviewed: Yes I reviewed the patient's lab results. Lab results narrative: White blood cell count 70971, hemoglobin 11.9, platelets adequate. Basic metabolic panel unremarkable. Liver functions unremarkable. Troponin 0.014 low negative. COVID/RSV/influenza swab negative. 04/13/24 18:39 04/13/24 18:39 Labs: Lab Results 04/13/24 04/13/24 04/13/24 Range/Units 18:25 18:39 21:12 WBC 12.1 H (4.5-11.0) X10^3/uL RBC 3.94 L (4.0-5.2) X10^6/uL Hgb 11.9 L (12.0-16.0) g/dL Hct 35.7 L (36-46) % MCV 90.5 (80-100) fL MCH 30.3 (26-34) PG MCHC 33.5 (30-36) % RDW 14.4 (11.6-14.8) % Plt Count 237 (150-400) X10^3/uL Neut % (Auto) 68.7 (50-75) % Lymph % (Auto) 24.0 L (25-40) % [place] % (Auto) 5.6 (3-14) % Eos % (Auto) 1.3 L (2-4) % Baso % (Auto) 0.4 (0-2) % Neut # (Auto) 8300 H (5569-0522) /uL Lymph # (Auto) 2900 (8451-2357) /uL [place] # (Auto) 700 (0-900) /uL Eos # (Auto) 200 (0-450) /uL Baso # (Auto) 100 (0-100) /uL Sodium 138 (137-145) mmol/L Potassium 4.1 (3.4-5.1) mmol/L Chloride 104 (98-107) mmol/L Carbon Dioxide 29 (22-32) mmol/L BUN 11 (7-17) mg/dL Creatinine 0.56 (0.52-1.04) mg/dL Estimated GFR > 60 (>60) mL/min BUN/Creatinine Ratio 19.6 (6-22) Glucose 93 (80-110) mg/dL Calcium 9.1 (8.4-10.2) mg/dL Total Bilirubin 0.6 (0.2-1.3) mg/dL AST 31 (14-36) IU/L ALT 21 (<35) IU/L Alkaline Phosphatase 79 (38-126) U/L Troponin I 0.014 (0.01-0.034) ng/mL Total Protein 7.0 (6.3-8.2) g/dL Albumin 4.0 (3.5-5.0) g/dL Globulin 3.0 (1.7-4.1) g/dL Albumin/Globulin Ratio 1.3 (1.0-2.8) Urine Color Yellow Urine Appearance Clear Urine pH 7.5 (4.5-8.0) Ur Specific [place] 1.010 (1.000-1.035) Urine Protein Negative (Negative) Urine Glucose (UA) Negative (Negative) g/dL Urine Ketones Negative (NEGATIVE) Urine Occult Blood Negative (Negative) Urine Nitrate Negative (Negative) Urine Bilirubin Negative (NEGATIVE) Urine Urobilinogen 0.2 (0.2) E.U./dL Ur Leukocyte Esterase 1+ H (NEGATIVE) Urine RBC 0-1/hpf (0-5/HPF) Urine WBC 0-1/hpf (0-5/HPF) Ur Squamous Epith Cells 0-1 /hpf (0-5/HPF) Urine Bacteria Moderate (10-30) H (None) Ur Culture Indicated? Specimen cultured Vol Urine Centrifuged 10ml (spun) SARS-CoV-2 (PCR) Negative (Negative) Influenza A (RT-PCR) Flu a negative (NEGATIVE) Influenza B (RT-PCR) Flu b negative (NEGATIVE) RSV (PCR) Negative (Negative) Imaging Data Chest x-ray: Radiologist's Impression: [address] [address] XRay Report Signed Patient: Rosita Grant MR#: [id number] : 1940 Acct:[id number] Age/Sex: 84 / F Date of Service: 04/13/24 Loc: ED Accession Number: [id number] Procedure: XR chest 1V Ordering Provider: Pavel Tapia MD PROCEDURE: XR CHEST 1V INDICATIONS: WBC 12k, eval for pn TECHNIQUE: One view of the chest was acquired. COMPARISON: None. FINDINGS: Surgical changes and devices: None. Lungs and pleura: Lungs are clear. No pleural effusions or pneumothorax. Mediastinum: Mediastinal contours appear normal. Heart size is normal. Bones and chest wall: No suspicious bony lesions. Overlying soft tissues appear unremarkable. IMPRESSION: No acute cardiopulmonary pathology. Dictated by: Shayan Broussard M.D. on 04/13/2024 at 21:12 Approved by: Shayan Broussard M.D. on 04/13/2024 at 21:12 MDM Narrative Medical decision making narrative: 84-year-old female with physical access difficulties due to home stairs entryway, baseline use of walker and wheelchair, has difficulty making follow up appointments, has run out of her Losartan and her Lipitor chronic medications, concerned about blood pressure elevation. She also has recent diarrhea this morning and had some last week. No fever on triage, sirs screen negative. Denies cough shortness of breath. Her blood pressure was elevated. Losartan 25 mg dose given, still elevated, we will give additional 25 mg dose. Refills to be sent to her pharmacy at [facility], of her losartan and her Lipitor. Has vague intermittent ?hot and cold? symptoms for the last 3 weeks. No fever noted on triage. EKG, troponin, CMP, CBC sent, urinalysis. COVID/flu swab. Consider IV fluid bolus recent diarrhea, she does not want IV placed, she will take oral fluids. Serum studies unremarkable. EKG without obvious ischemic changes. COVID/flu negative. Urinalysis pending. Losartan 25 mg oral dose given, elevated blood pressure persistent, we will give repeat dose. Refills of her losartan 25 mg daily and atorvastatin 80 mg daily to be sent to her pharmacy. corporate services manager consult to help address physical/transportation/household various for her getting to her follow up appointments and pharmacy. She does not want alternate assisted care/[place] [facility] placement at this time. corporate services manager evaluated patient, she has support family that she can call to help her get to her appointments, Chest x-ray without acute changes, see radiology report. Urinalysis suspicious for infection, urine culture requested. Oral dose cephalexin, further antibiotics course cephalexin sent to her pharmacy. Refills prescriptions of her chronic losartan and atorvastatin medications sent to her pharmacy. Discharged home with family. Follow up advised with PCP for refills chronic medications. Return precautions discussed Discharge Plan Departure Patient Disposition: Home Clinical Impression: Hypertension, Urinary tract infection Activity Restrictions/Additional Instructions: Refills requested of your atorvastatin and lisinopril, elevated blood pressure noted, losartan medication was given. Prescriptions for refills of both of these medication sent to your pharmacy. Screening laboratory studies included urinalysis that looked suspicious for infection, urine culture requested. First oral dose of antibiotic cephalexin given, prescription for further course of antibiotics sent to your pharmacy. Take antibiotics as directed. Drink plenty of fluids. Follow up with your regular doctor as scheduled, please try to make an appointment before 1 month, before your supply of your chronic medications were to run out. Consider repeat visit also after course of your antibiotics, to confirm clearance of your urinary tract infection. Return earlier to this/nearest emergency department for any change worsening symptoms or any concerns prior Prescriptions: New losartan 25 mg tablet 25 mg PO DAILY Qty: 30 0RF atorvastatin 80 mg tablet 80 mg PO BEDTIME Qty: 30 0RF cephalexin 500 mg capsule 500 mg PO QID 7 Days Qty: 28 0RF No Action atorvastatin 80 mg tablet 80 mg PO DAILY losartan 25 mg tablet 25 mg PO DAILY polyethylene glycol 3350 [Miralax] 17 gram Powder In Packet 17 g PO DAILY PRN (Reason: Constipation) aspirin 81 mg Capsule 81 mg PO DAILY doxycycline hyclate 100 mg capsule 100 mg PO BID Qty: 20 0RF Referrals: Pipo Pak MD [Primary Care Provider] - Stand Alone Forms: Patient Portal/API/Survey
--- NOTE | 2024-04-13 18:07 | PC.NURSE ---
This RN informed Dr. Tapia that patient blood pressure is back above 200 systolic. No new orders at this time.
--- NOTE | 2024-04-13 18:13 | CM.DANOTE ---
ED SOLAR PHOTOVOLTAIC DESIGNER DCP Assessment Note: Pt is a 84yo female, resident of [place], presented via EMS for high blood pressure and weakness. Pt lives on the 2nd floor of her home, her granddaughter lives on the first floor. Pt's Primary Care Provider is Dr. Pipo Pak MD and insurance is Medicare and [employer]. Reviewed chart and team rounds for pt's medical status and initial discharge needs. Per RN, pt has not been medication compliant due to no refills, she has not been able to see her PCP in the last month due to weakness and lack of transportation. DCP met w/patient at bedside; introduced self and role. Patient was found in bed, alert and oriented, cooperative with assessment. Pt stated she is not feeling well and sweaty but cold. Pt confirmed living situation and good support in granddaughters who are able to assist with all needs but states they are too busy to take her to her appointments. Pt expressed preference in discharging home when medically cleared, states without Medicare supported home health, she would not be able to afford private care apart from her busy granddaughters. ED SOLAR PHOTOVOLTAIC DESIGNER attempted to call pt PCP but no one was able to take call. Pt gave consent for this SOLAR PHOTOVOLTAIC DESIGNER to speak with khang De. Per granddaughter, pt family more than willing to assist with healthcare appts but pt states she is too weak to leave her 2nd floor unit. Pt granddaughter states she was notified by Naima Hawley of the [employer]ist program and is hopeful this would encourage pt to attend this PCP appointment. Pt granddaughter states she will also go to pt PCP office tomorrrow to schedule ED follow up appointment. Plan: Awaiting medical workup by ED Provider, anticipating discharge home with Kenisha fuller (ph#[phone]), when medically cleared. CM team will follow closely for coordination of discharge plans. RICHELLE Teixeira Discharge Planning/Care Management CM Discharge Assessment Start: 04/13/24 18:10 Freq: Status: Active Protocol: Document 04/13/24 18:10 MW (Rec: 04/13/24 18:13 MW [id number]) Discharge Planning Assessment Assigned Store Coordinator MANISH Samaniego DPOA/Assigned Designee Name Khang Mckeon Contact Information [phone] Advance Directives? No History Provided By Patient,Family Member,Medical Record Prior Living Arrangements House Household Members family Comment Granddaughter, Sammi lives on first floor of pt's home. Patient lives on second floor. Type of transporation used prior to Relies on Others admit Independent with ADL's No Is patient alert and oriented? Yes Needs Assistance With Bathing,Meal Prep,Managing Medications,Home Chores / Shopping Caregiver for Another No Patient/Family Preference Home with Home Health Barriers to Discharge No Discharge Plan Home Referrals Initiated None needed Review Status In Process Please Provide Date Initial DC 04/13/24 Assessment Was Performed Next Review Type Continued Stay Review
--- NOTE | 2024-04-13 18:29 | EKG_ITS ---
[address] [address] Test Date: 2024-04-13 Pat Name: Rosita Grant Department: [facility] Room: Gender: Female Security Sme: NOEL : 1940 Requested By: Order Number: [id number] Reading MD: Ernesto Montez MD Measurements Intervals [place] Rate: 68 P: 47 NV: 134 QRS: -21 QRSD: 90 T: 51 QT: 404 QTc: 429 Interpretive Statements Normal sinus rhythm Electronically Signed On 04-14-2024 7:48:01 PST by Ernesto Montez MD
--- NOTE | 2024-04-13 18:40 | PC.NURSE ---
Patient is able to swallow fluids. Provider asked for this RN to fill 500ml fluid in a cup and have patient drink fluid. This RN provided. Patient discussed IV with provider and provider stated that a lab draw was sufficient.
[2024-04-13 18:48] LABS: Add Manual Diff / Slide Review NO; Basophils Absolute Auto 100 /uL (0-100); Basophils Percent Auto 0.4 % (0-2); Eosinophils Absolute Auto 200 /uL (0-450); Eosinophils Percent Auto 1.3 % (2-4); Hematocrit 35.7 % (36-46); Hemoglobin 11.9 g/dL (12.0-16.0); Lymphocytes Absolute Auto 2900 /uL (1100-4500); Mean Corpuscular HGB Conc 33.5 % (30-36); Mean Corpuscular Hemoglobin 30.3 PG (26-34); Mean Corpuscular Volume 90.5 fL (80-100); Monocytes Absolute Auto 700 /uL (0-900); Monocytes Percent Auto 5.6 % (3-14); Neutrophils Absolute Auto 8300 /uL (1500-7000); Neutrophils Percent Auto 68.7 % (50-75); Platelet Count 237 X10^3/uL (150-400); Red Blood Cell Count 3.94 X10^6/uL (4.0-5.2); Red Cell Distribution Width 14.4 % (11.6-14.8); White Blood Cell Count 12.1 X10^3/uL (4.5-11.0)
[2024-04-13 19:05] LABS: Alanine Aminotransferase 21 IU/L (<35); Albumin Globulin Ratio 1.3 (1.0-2.8); Alkaline Phosphatase 79 U/L (38-126); Aspartate Aminotransferase 31 IU/L (14-36); BUN Creatinine Ratio 19.6 (6-22); Bilirubin Total 0.6 mg/dL (0.2-1.3); Blood Urea Nitrogen 11 mg/dL (7-17); Calcium 9.1 mg/dL (8.4-10.2); Carbon Dioxide 29 mmol/L (22-32); Chloride 104 mmol/L (98-107); Estimated Glomerular Filt Rate > 60 mL/min (>60); Glucose 93 mg/dL (80-110); HEMOLYSIS < 15 (0-50); Potassium 4.1 mmol/L (3.4-5.1); Sodium 138 mmol/L (137-145)
[2024-04-13 19:08] LABS: Influenza A - CEPHEID Flu A NEGATIVE (NEGATIVE); Influenza B - CEPHEID Flu B NEGATIVE (NEGATIVE); Respiratory Syncytial Virus Negative (Negative)
[2024-04-13 19:16] LABS: Troponin I 0.014 ng/mL (0.01-0.034)
[2024-04-13 19:20] LABS: COVID-19 CEPHEID 4-PLEX PCR Negative (Negative)
--- NOTE | 2024-04-13 20:53 | DI.RAD.S_ITS ---
PROCEDURE: XR CHEST 1V INDICATIONS: WBC 12k, eval for pn TECHNIQUE: One view of the chest was acquired. COMPARISON: None. FINDINGS: Surgical changes and devices: None. Lungs and pleura: Lungs are clear. No pleural effusions or pneumothorax. Mediastinum: Mediastinal contours appear normal. Heart size is normal. Bones and chest wall: No suspicious bony lesions. Overlying soft tissues appear unremarkable. IMPRESSION: No acute cardiopulmonary pathology. Dictated by: Shayan Broussard M.D. on 04/13/2024 at 21:12 Approved by: Shayan Broussard M.D. on 04/13/2024 at 21:12
--- NOTE | 2024-04-13 21:01 | PC.NURSE ---
Xray at bedside
--- NOTE | 2024-04-13 21:15 | PC.NURSE ---
No change in patient condition or status. Pt lying in ED stretcher speaking with staff. No distress noted at this time. Pt remains connected to cardiac, resp, blood pressure, and pulse ox monitors with alarms on and audible. Call light within reach. Urine sample collected at this time via suction/pure wick.
[2024-04-13 21:36] LABS: Appearance Urine UA CLEAR; Bacteria Urine Moderate (10-30); Bilirubin Urine UA NEGATIVE (NEGATIVE); Color Urine UA YELLOW; Glucose Urine UA NEGATIVE (Negative); Ketones Urine UA NEGATIVE (NEGATIVE); Leukocyte Esterase Urine UA 1+ (NEGATIVE); Nitrite Urine UA NEGATIVE (Negative); Occult Blood Urine UA NEGATIVE (Negative); Protein Urine UA NEGATIVE (Negative); RBC Urine 0-1/HPF (0-5/HPF); Squamous Epithelial Cell Urine 0-1 /HPF (0-5/HPF); Urine Volume 10mL (spun); Urobilinogen Urine UA 0.2 E.U./dL (0.2); WBC Urine 0-1/HPF (0-5/HPF); pH Urine UA 7.5 (4.5-8.0)
[2024-04-13 21:37] LABS: Culture Indicated Urine Specimen Cultured
[2024-04-13] MEDS: cephALEXin 250 MG CAPSULE 500 MG PO (22:08)
--- NOTE | 2024-04-13 22:43 | PC.NURSE ---
Spoke with Kenisha (granddaughter) . States she willbe on her way to [employer] operator patient.
== END 2024-04-13 23:26 | disposition home or self-care (01) ==
PROVIDERS: Emergency Provider Emergency Medicine; PCP Family Medicine
DX: I10 Essential (primary) hypertension (principal); N39.0 Urinary tract infection, site not specified
CPT/HCPCS: 0241U; 71045; 80053; 81001; 84484; 85025; 87086; 93005; 93010; 99284